=== PATIENT | female | born 1985 | race African-American/Black ===

== ENCOUNTER 2022-06-10 15:02 | Emergency (ER) | payer OTHER ==
[2022-06-10] MEDS ORDERED: Ondansetron PF 4 MG/2 ML Vial ONE (16:13)
[2022-06-10] MEDS ORDERED: Morphine 4 MG/ML VIAL ONE (16:13)
[2022-06-10 16:48] LABS: #Eosinphils 0.1 10x3/uL (0.0-0.5); #Monocytes 0.6 10x3/uL (0.0-1.1); #Neutrophils 12.9 10x3/uL (1.5-8.4); %Basophils 0.2 % (0.0-2.0); %Eosinophils 0.5 % (0.0-6.0); %Lymphocytes 18.9 % (18.0-47.0); %Monocytes 3.6 % (0.0-10.0); %Neutrophils 76.3 % (40.0-75.0); Hemoglobin 9.7 g/dL (12.0-15.5); Mean Corpuscular HGB CONC 30.4 g/dL (32.0-36.0); Mean Corpuscular Hemoglobin 20.4 pg (27.0-33.0); Mean Platelet Volume 9.7 fl (7.4-10.4); Platelet Count 445 10x3/uL (150-450); RBC Distribution Width 16.4 % (11.5-14.5); Red Blood Cell (RBC) Count 4.76 10x6/uL (3.90-5.03); White Blood Cell (WBC) Count 16.9 10x3/uL (3.5-10.5)
[2022-06-10 17:05] LABS: ALT (SGPT) 12 U/L (8-55); AST (SGOT) 14 U/L (5-34); Albumin 3.6 g/dL (3.5-5.0); Alkaline Phosphatase 65 U/L (40-110); Anion Gap 12 mmol/L (10-20); BUN (Urea Nitrogen) 8 mg/dL (7.0-18.7); Bilirubin, Total 0.1 mg/dL (0.2-1.2); Calc. Creatinine Clearance 0 mL/min (70-130); Carbon Dioxide 23 mmol/L (22-29); Chloride 106 mmol/L (98-107); Estimated GFR 102; Globulin 3.7 g/dL (2.4-3.5); Glucose 87 mg/dL (70-105); Potassium 3.7 mmol/L (3.5-5.1); Protein, Total 7.3 g/dL (6.0-8.3); Sodium 137 mmol/L (136-145)
[2022-06-10 17:06] LABS: Platelet Morphology Comment Appears Adequate
[2022-06-10 17:08] LABS: Anisocytosis SLIGHT = 6-15 cells (100X) (0-5/hpf); Hypochromia SLIGHT = 6-15 cells (100X) (0-5/hpf); Macrocytosis SLIGHT = 6-15 cells (100X) (0-5/hpf); Microcytosis SLIGHT = 6-15 cells (100X) (0-5/hpf); Target Cells SLIGHT = 2-5 cells (100X) (0-1/hpf)
[2022-06-10 17:13] LABS: Bilirubin Neg (Negative); Blood, Urine 25 (Negative); Clarity Clear (Clear); Glucose, Urine (Dipstick) Normal (Negative); Ketone, Urine Negative (Negative); Leukocyte Negative (Negative); Nitrite Negative (Negative); Protein, Urine (Dipstick) Negative (Neg-Trace); Urobilinogen Normal mg/dL (Less than 2); pH, Urine 6.5 (5.0-9.0)
[2022-06-10 17:19] LABS: Bacteria/HPF None Seen HPF (None Seen); Squamous Epithelial 0-3 HPF (0-3); WBC/HPF 0-3 HPF (0-3)
[2022-06-10] MEDS ORDERED: Ketorolac Tromethamine 30 MG/ML VIAL ONE (17:51)
== END 2022-06-10 17:51 | disposition home or self-care (01) ==
LOC: CSHERS 15:02
DX: R10.32 Left lower quadrant pain (principal)
CPT/HCPCS: 71045; 74177; 80053; 81003; 81015; 85025; 96374; 96375; J1885; J2270; J2405

== ENCOUNTER 2024-01-18 13:02 | Emergency (ER) | payer OTHER ==
[2024-01-18] MEDS ORDERED: Lidocaine 4% Patch ONE (14:54)
[2024-01-18] MEDS ORDERED: Ketorolac Tromethamine 30 MG (1 mL) VIAL ONE (16:07)
== END 2024-01-18 16:38 | disposition home or self-care (01) ==
LOC: CSHERS 13:02
DX: M17.11 Unilateral primary osteoarthritis, right knee (principal); F17.290 Nicotine dependence, other tobacco product, uncomplicated
CPT/HCPCS: 96372; 99283; J1885

== ENCOUNTER → 2025-02-11 | Emergency (ER) | payer MEDICAID | LOC: CSHERS 23:16 | DX: M94.8X8 Other specified disorders of cartilage, other site (principal); F17.200 Nicotine dependence, unspecified, uncomplicated | CPT/HCPCS: 76536; 84443; 96365; 96367; 96375; J2543; J3010; J3373 ==

== ENCOUNTER → 2025-02-12 | Emergency (ER) | payer MEDICAID ==
[~2025-02-12] MED LIST: Ondansetron PF 4 MG/2 ML Vial ONE
[2025-02-12 13:40] LABS: #Basophils 0.04 10x3/uL (0.0-0.2); #Eosinophils 0.14 10x3/uL (0.0-0.5); #Monocytes 0.62 10x3/uL (0.0-1.1); #Neutrophils 5.71 10x3/uL (1.5-8.4); %Basophils 0.4 % (0.0-2.0); %Eosinophils 1.4 % (0.0-6.0); %Lymphocytes 33.1 % (18.0-47.0); %Monocytes 6.3 % (0.0-10.0); %Neutrophils 58.5 % (40.0-75.0); Hematocrit 35.0 % (34.9-44.5); Hemoglobin 10.3 g/dL (12.0-15.5); Mean Corpuscular Hemoglobin 18.7 pg (27.0-33.0); Mean Corpuscular Volume 63.5 fL (81.6-98.3); Platelet Count 467 10x3/uL (150-450); Red Blood Cell (RBC) Count 5.51 10x6/uL (3.90-5.03); White Blood Cell (WBC) Count 9.77 10x3/uL (3.5-10.5)
[2025-02-12 13:59] LABS: ALT (SGPT) 12 U/L (Less than 34); AST (SGOT) 21 U/L (11-34); Albumin 4.0 g/dL (3.1-4.5); Alkaline Phosphatase 71 U/L (40-110); Anion Gap 11 mmol/L (10-20); BUN (Urea Nitrogen) 9 mg/dL (7.0-18.7); Bilirubin, Total 0.2 mg/dL (0.3-1.2); Calc. Creatinine Clearance 0 mL/min (70-130); Calcium 9.7 mg/dL (7.8-10.44); Carbon Dioxide 23 mmol/L (22-29); Chloride 107 mmol/L (98-107); Globulin 4.8 g/dL (2.4-3.5); Glucose 80 mg/dL (70-105); Potassium 3.8 mmol/L (3.5-5.1); Sodium 137 mmol/L (136-145)
[2025-02-12 14:42] LABS: Reflex for Review?? YES
[2025-02-12 15:19] LABS: Anisocytosis MARKED = >30 cells (100X) (0-5/hpf); MDiff Complete? YES; Microcytosis MARKED = >30 cells (100X) (0-5/hpf); Platelet Adequacy Comment Appears Increased
== END ==
LOC: CSHERS 12:25
DX: J38.7 Other diseases of larynx (principal); F17.290 Nicotine dependence, other tobacco product, uncomplicated
CPT/HCPCS: 80053; 85025; 85060; 96365; 96375; 96376; J2270; J2274; J2405; J2543